=== PATIENT | female | born 1935 | race Caucasian/White ===

== ENCOUNTER → 2020-02-11 | Outpatient (CLI) | payer OTHER ==
[~2020-02-11] MED LIST: ADULT LOW DOSE81 MG PO; ARAVA10 MG PO; CALCIUM OYSTER500 MG PO; CALCIUM PO; CARDIZEM CD300 MG PO; FOLIC ACID1 MG PO; FOSAMAX 70 MG T70 MG PO; LEVOXYL125 MCG PO; METHOTREXA250 MG/10; METHOTREXATE; MULTIVITAMINS; PREDNISONE 2.52.5 MG PO; VICODIN; VICODIN 5-5001 EACH PO
--- NOTE | 2020-02-11 17:58 | CARDNUC ---
[place] [address] CARDIAC NUCLEAR IMAGING REPORT Name: CARMELITA ROSENBAUM Room: [facility]#: [id number] Admission: 02/11/20 Attend Phys: Vu Armendariz, Discharge: Date of : 37 Date of Service: 02/11/20 1757 Report #: [id number] THIS REPORT FOR: cc: Melody Almanzar Mohammad K. DO Liston, Michael J. MD [facility] ~ APPROVED REPORT Study performed: 02/11/2020 15:00:08 Exam: Nuclear Stress Test Indication: Chest pain, PAFib. Patient Location: Out-Patient Stress Tech: Allegra Marlow Stress Nurse: Radha Cha R.N. Ht: 5 ft 3 in Wt: 135 lbs BSA: 1.64 m2 BMI: 23.91 Medical History Medical History: Angina, Atrial Fibrillation, Fatigue, HTN, Hyperlipidemia, PAT, CVA, Hypothyroidism, Mitral Valve regurgiatation, unsteady/unstable, residual CVA. Medications: Amlodipine, Apixaban, Atorvastatin, Rythmol. Allergies: Penicillin G. Cardiac Risk Factors: Age, FHX of CAD, HTN, Hyperlipidemia, PAFib, PAT, Mitral Valve Regurgitation. Previous Cardiac Procedures: None Pretest Chest Pain Characteristics: No chest pain Exercise History: Sedentary Physical Disabilities: HX CVA, unsteady/unstable gait, weakness. Meds Held (24 hrs): None Stress Test Details Stress Test: Pharmacologic stress testing performed using 0.4 mg of regadenoson per 5 mL given IV over 10 seconds. Reason for pharmacologic stress test: HX CVA, unsteady/unstable gait, weakness.. HR Resting HR: 71 bpm Max Heart Rate (APMHR): 137 bpm Max HR Achieved: 98 bpm Target HR (85% APMHR): 116 bpm % of APMHR: 71 Recovery HR: 86 [place] [address] CARDIAC NUCLEAR IMAGING REPORT Name: CARMELITA ROSENBAUM Room: [facility]#: [id number] Admission: 02/11/20 Attend Phys: Vu Armendariz, Discharge: Date of : 37 Date of Service: 02/11/20 1757 Report #: [id number] Resting BP: 153/85 mmHg Max BP: 150/72 mmHg ECG Resting ECG: Sinus Rhythm, nonspecific ST-T abnormalities Stress ECG: Sinus Rhythm, nonspecific ST-T abnormalities ST Change: None Arrhythmia: None Recovery ECG: Sinus Rhythm, nonspecific ST-T abnormalities Recovery ST Change: None Recovery Arrhythmia: None Clinical Reason for Termination: Completed protocol Stress Symptoms: Lightheaded/dizzy, labored breathing, chest discomfort 8/10, nausea, fatigued. Exercise duration: 00 min 00 sec Exercise capacity: 1.00 METs The patient tolerated Lexiscan infusion without significant cardiac symptoms. Nurse Comments Test completed successfully. See nurses notes on EKG print out. Stress ECG Conclusion Baseline twelve-lead EKG shows sinus rhythm with some nonspecific subtle downsloping ST segment depression diffusely. EKGs obtained during and post Lexiscan infusion show sinus rhythm with no significant ST segment changes when compared to baseline. There were no stress-induced arrhythmias. NM EXAM: Myocardial Perfusion REST/STRESS Imaging Protocol: Rest Tc-99m/Stress Tc-99m 1 day Resting Data Rest SPECT myocardial perfusion imaging was performed in supine position 30 minutes following the intravenous injection of 10.5 mCi of Tc-99m Sestamibi. Time of rest injection: 13:30 The images were gated to evaluate regional wall motion and calculate left ventricular ejection fraction. Administration Route: [place] [address] CARDIAC NUCLEAR IMAGING REPORT Name: CARMELITA ROSENBAUM Room: [facility]#: [id number] Admission: 02/11/20 Attend Phys: Vu Armendariz, Discharge: Date of : 37 Date of Service: 02/11/20 1757 Report #: [id number] Administration Site: Right Wrist Pharmacologic Stress Pharmacologic stress test was performed by injecting Regadenoson 0.4 mg IV push followed by the intravenous injection of 28.3 mCi of Tc-99m Sestamibi. Time of stress injection: 14:50 Administration Route: IV Administration Site: Right Wrist Heart Rate at time of stress injection: 98 bpm. Gated Stress SPECT was performed 40 minutes after stress injection. The images were gated to evaluate regional wall motion and calculate left ventricular ejection fraction. Prone imaging was performed. Study Quality Study: Good Artifact: No artifact Study Data At rest, the left ventricular ejection fraction was 71%.. Post stress, the left ventricular ejection was 71%.. TID = 0.88. Perfusion Normal left ventricular perfusion. Wall Motion Normal left ventricular wall motion. Nuclear Conclusion ECG Findings: non-diagnostic Clinical Findings: negative for ischemia Nuclear Findings: negative for ischemia Exercise Capacity: not assessed Left Ventricular Function: normal Risk Study: low Perfusion images show no defect to suggest infarct or ischemia. Left ventricular systolic function is normal on gated studies. This is a low risk study. <Conclusion> Baseline twelve-lead EKG shows sinus rhythm with some nonspecific subtle downsloping ST segment depression diffusely. EKGs obtained during and post Lexiscan infusion show sinus [place] [address] CARDIAC NUCLEAR IMAGING REPORT Name: CARMELITA ROSENBAUM [facility] [id number] Admission: 02/11/20 Attend Phys: Vu Armendariz, Discharge: Date of : 37 Date of Service: 02/11/20 1757 Report #: [id number] segment changes when compared to baseline. There were no stress-induced arrhythmias. <ELECTRONICALLY SIGNED> By: Vu Armendariz MD, FACC 02/11/201756 [id number] Vu Armendariz MD, FACC /INF
== END ==
LOC: M.NUC 01-20 16:19
PROVIDERS: ATTEND Internal Medicine Cardiovascular Disease
DX: I48.0 Paroxysmal atrial fibrillation (principal); R07.89 Other chest pain; I10 Essential (primary) hypertension; E78.5 Hyperlipidemia, unspecified; E03.9 Hypothyroidism, unspecified; Z88.0 Allergy status to penicillin; Z79.899 Other long term (current) drug therapy